=== PATIENT | female | born 1995 | race Caucasian/White ===

== ENCOUNTER → 2017-01-07 | Outpatient (CLI) | payer OTHER ==
[2017-01-07 16:37] LABS: TOTAL PROTEIN,URINE 25.2 mg/dl (0-11.9)
== END ==
LOC: LAB 15:41
PROVIDERS: ATTEND Specialist
DX: Z34.83 Encounter for supervision of other normal pregnancy, third trimester (principal); R03.0 Elevated blood-pressure reading, without diagnosis of hypertension
CPT/HCPCS: 81050; 84157

== ENCOUNTER 2017-01-10 19:08 | Inpatient (IN) | payer OTHER ==
[2017-01-10 19:16] VITALS: BMI 35.1
[2017-01-10 19:38] LABS: BILIRUBIN,URINE NEGATIVE (NEGATIVE); BLOOD/HEMOGLOBIN,URINE 1+ (NEGATIVE); GLUCOSE, URINE NEGATIVE (NEGATIVE); KETONES,URINE NEGATIVE (NEGATIVE); LEUKOCYTE ESTERASE ,URINE 3+ (NEGATIVE); NITRITES,URINE NEGATIVE (NEGATIVE); PROTEIN,URINE 2+ (NEGATIVE); UROBILINOGEN,URINE NORMAL (NORMAL)
[2017-01-10 19:48] LABS: AMORPHOUS SEDIMENT,UR TRACE /HPF (NEGATIVE); APPEARANCE,URINE HAZY (CLEAR); BACTERIA,URINE 1+ /HPF (NEGATIVE); COLOR,URINE YELLOW (YELLOW); MUCUS,URINE FEW /HPF (NEGATIVE); SQUAMOUS EPITHELIAL CELL,UR MODERATE /HPF (NEGATIVE)
--- NOTE | 2017-01-10 19:59 | DR.GENAD ---
HPI - PCP Primary Care Physician: lilo - Complaint/Symptoms Chief Complaint:: pt states" i'm having trouble peeing and my back hurts i peed a few hours ago but i'm scared i may have a kidney stone or something cause my family has kidney stones" pt very emotional in triage - Nurses notes reviewed Nurses Notes Review: Yes - Source History Provided: Patient - Mode of Arrival Mode of Arrival: Ambulatory - Timing Onset of Chief Complaint: 01/07/17 PMH - PMH Past Medical History: No Past Surgical History: No - Family History History of Family Medical Conditions: No - Social History Alcohol Use: None Do you use any recreational Drugs:: No Lives With: Family Lives Where: Home - infectious screening In the last 2 months have you had wt loss of >10#?: NO Have you had fever, night sweats or hemotysis?: No Have you traveled outside the country in the last 6 months?: No Isolation: Standard PE - Vital Signs Vitals: Temperature 98.4 F Pulse Rate 83 Respiratory Rate 18 Blood Pressure 177/119 O2 Sat by Pulse Oximetry 96 ROR - Labs Reviewed Result Diagrams: 01/11/17 03:05 01/10/17 22:00 - Discharge Plan Disposition: ADMITTED INPATIENT Condition: Stable - Follow ups/Referrals - Instructions
[2017-01-10] MEDS ORDERED: D5LR 1000ML W PITOCIN 10 U/L 1,000 ML IV ONE (20:39)
[2017-01-10] MEDS ORDERED: NS 50 ML IV + SPIKE MINIBAG* 50 ML IV ONE (20:39)
[2017-01-10] MEDS ORDERED: D5 1/2 NS 1000ML W PITOCIN 20 U/L 1,000 ML IV ONE (20:40)
[2017-01-10] MEDS ORDERED: AMPICILLIN VIAL 2 GM ONE (20:40)
[2017-01-10] MEDS ORDERED: PITOCIN ONE (20:40)
[2017-01-10] MEDS ORDERED: D5 1/2 NS 1000 ML 1,000 ML IV ONE (20:40)
[2017-01-10] MEDS ORDERED: FENTANYL INJ 100 mcg ONE (21:13)
[2017-01-10] MEDS ORDERED: NAROPIN EPIDURAL 0.2% + FENTANYL 90MCG 60 ML EPI ONE (21:13)
[2017-01-10] MEDS ORDERED: LR 1000 ML IV 1,000 ML IV ONE ×2 (21:14→21:40)
[2017-01-10] MEDS ORDERED: NAROPIN EPIDURAL 0.2% 60 ML with FENTANYL INJ 100 mcg 90 MCG IVP SCH ×2 (21:40)
[2017-01-10] MEDS ORDERED: FENTANYL INJ 100 mcg EPI ONE (21:40)
[2017-01-10] MEDS ORDERED: REGLAN INJ 10 MG VIAL IVP PRN (21:46)
[2017-01-10] MEDS ORDERED: PITOCIN 10 UNITS in D5 LR 1000 ML 1,000 ML IV PRN (21:46)
[2017-01-10] MEDS ORDERED: PITOCIN IVP ONE (21:46)
[2017-01-10] MEDS ORDERED: PHENERGAN INJ 25 MG IV PRN (21:46)
[2017-01-10] MEDS ORDERED: NUBAIN INJ 200 MG VIAL MULTIDOSE IVP PRN (21:46)
[2017-01-10] MEDS ORDERED: MORPHINE SULFATE INJ 2 MG IVP PRN (21:46)
[2017-01-10] MEDS ORDERED: D5 1/2 NS 1000 ML 1,000 ML IV SCH (22:00)
[2017-01-10] MEDS ORDERED: AMPICILLIN VIAL 2 GM 2 GM in NS 100 ML IV + SPIKE MINIBAG* 100 ML IV SCH (22:00)
[2017-01-10 22:16] LABS: BASOPHILS # (AUTO) 0.1 X10^3/uL (0.0-0.1); BASOPHILS % (AUTO) 1.1 % (0.2-1.0); EOSINOPHILS # (AUTO) 0.1 x10^3/uL (0.0-0.2); HEMATOCRIT 33.7 % (36.0-47.0); HEMOGLOBIN 11.4 g/dL (12.0-16.0); LYMPHOCYTES % (AUTO) 15.8 % (21.0-51.0); MEAN CORPUSCULAR HEMOGLOBIN 31.8 pg (27.0-34.0); MEAN CORPUSCULAR HGB CONC 33.9 g/dL (33.0-35.0); MEAN CORPUSCULAR VOLUME 93.9 fL (80.0-100.0); MEAN PLATELET VOLUME 10.7 fL (7.4-11.0); MONOCYTES # (AUTO) 0.9 x10^3/uL (0.3-0.8); MONOCYTES % (AUTO) 7.2 % (0.0-13.0); NEUTROPHILS # (AUTO) 9.4 x10^3/uL (2.2-4.8); NEUTROPHILS % (AUTO) 74.9 % (42.0-75.0); PLATELET COUNT 214 X10^3/uL (150.0-450.0); RED BLOOD COUNT 3.59 X10^6/uL (3.5-5.4); RED CELL DISTRIBUTION WIDTH 13.3 % (11.6-16.5); WHITE BLOOD COUNT 12.5 X10^3/uL (3.6-10.0)
[2017-01-10 22:21] LABS: BLOOD UREA NITROGEN 6 mg/dL (7-18); CALCIUM 8.9 mg/dL (8.5-10.1); CARBON DIOXIDE 24.2 mmol/L (21-32); CHLORIDE 104 mmol/L (98-107); CREATININE 0.48 mg/dL (0.55-1.02); GLUCOSE 91 mg/dL (65-99); SODIUM 137 mmol/L (136-145); eGFR BLACK RACES > 60 (>60); eGFR NON BLACK RACES > 60 (>60)
[2017-01-11] MEDS ORDERED: MOTRIN TAB 800 MG PO PRN (00:59)
[2017-01-11] MEDS ORDERED: PHENERGAN INJ 25 MG IV PRN ×2 (00:59→02:03)
--- NOTE | 2017-01-11 00:59 | DR.OB ---
OB Quick Note - Assessment/Plan Assessment/Plan: Delivery Note DELI/BAKERY ASSOCIATE 01/11/17 at 12:55am Patient complete and pushing. Head delivered over intact perineum. No nuchal cord. Nose and mouth bulb suctioned. Body delivered over intact perineum. Cord clamped x 2 and cut. Infant handed to attendant. Cord sent for gases. Placenta delivered spontaneously / intact / 3 vessel cord. No CVX tears. A small midline second degree tear noted and repaired with 0-vicryl in usual fashion. Viable male infant, VTX/OA, wt=5'10" and 9/9, stable to NBN. Mother stable to RR. [id number].
[2017-01-11] MEDS ORDERED: D5 1/2 NS 1000 ML 1,000 ML with PITOCIN 20 UNITS IV SCH ×4 (01:00→09:00)
[2017-01-11] MEDS ORDERED: AMPICILLIN VIAL 1 GM 1 GM in NS 50 ML IV + SPIKE MINIBAG* 50 ML IV SCH (01:22)
[2017-01-11] MEDS ORDERED: MILK OF MAGNESIA PO PRN (02:03)
[2017-01-11] MEDS ORDERED: AMBIEN PO PRN (02:03)
[2017-01-11] MEDS ORDERED: DERMOPLAST SPRAY TOP PRN (02:03)
[2017-01-11] MEDS ORDERED: ADACEL TDaP IM ONE ×2 (02:03→07:48)
[2017-01-11] MEDS ORDERED: REGLAN INJ 10 MG VIAL IVP PRN (02:03)
[2017-01-11] MEDS: MOTRIN TAB 800 MG PO PRN ×2 (05:52→21:09)
[2017-01-11] MEDS: PRENATAL PLUS PO SCH (08:40)
[2017-01-11] MEDS: ZANTAC PO SCH ×2 (08:40→21:09)
[2017-01-11] MEDS: FERROUS SULFATE PO SCH (17:22)
[2017-01-12] MEDS: FERROUS SULFATE PO SCH (06:05)
[2017-01-12 08:09] VITALS: BP 133/90
[2017-01-12] MEDS: ZANTAC PO SCH (08:29)
[2017-01-12] MEDS: PRENATAL PLUS PO SCH (08:29)
== END 2017-01-12 11:05 | disposition home or self-care (01) | DRG 775 ==
LOC: ER 19:20 → LD 20:46 → MED/SURG 01-11 01:48
PROVIDERS: ADMIT Specialist; ATTEND Specialist
PROC: 10E0XZZ Delivery of Products of Conception, External Approach (ICD-10-PCS; principal; 2017-01-10)
PROC: 00HU33Z Insertion of Infusion Device into Spinal Canal, Percutaneous Approach (ICD-10-PCS; 2017-01-10)
PROC: 0KQM0ZZ Repair Perineum Muscle, Open Approach (ICD-10-PCS; 2017-01-10)
PROC: 3E0234Z Introduction of Serum, Toxoid and Vaccine into Muscle, Percutaneous Approach (ICD-10-PCS; 2017-01-11)
DX: O13.3 Gestational [pregnancy-induced] hypertension without significant proteinuria, third trimester (principal); Z37.0 Single live birth; O60.14X0 Preterm labor third trimester with preterm delivery third trimester, not applicable or unspecified; Z22.330 Carrier of Group B streptococcus; D50.8 Other iron deficiency anemias; O70.1 Second degree perineal laceration during delivery; Z3A.35 35 weeks gestation of pregnancy; Z23 Encounter for immunization
CPT/HCPCS: 09167; 36415; 59409; 80048; 81001; 85014; 85018; 85025; 86592; 86850; 86900; 86901; 87086; 99284; A4216; A4222; S0197; J0290; J2590; J3010; J7042; J7120

== ENCOUNTER 2018-04-26 06:20 | Inpatient (IN) ==
[2018-04-26] MEDS ORDERED: LR 1000 ML IV 1,000 ML IV ONE ×2 (06:34→16:04)
[2018-04-26] MEDS ORDERED: ADRENALINE CHL INJ ONE (06:35)
[2018-04-26] MEDS ORDERED: FENTANYL INJ 100 mcg ONE ×2 (06:35→16:28)
[2018-04-26] MEDS ORDERED: PITOCIN ONE (06:35)
[2018-04-26] MEDS ORDERED: XYLOCAINE 1 % (PLAIN) ONE (06:36)
[2018-04-26] MEDS ORDERED: D5 1/2 NS 1000 ML 1,000 ML IV ONE (06:36)
[2018-04-26] MEDS ORDERED: D5 1/2 NS 1L W PITOCIN 20 UNITS/L 20 UNITS/1,000 ML BAG IV ONE (06:36)
[2018-04-26] MEDS ORDERED: NAROPIN EPIDURAL 0.2% + FENTANYL 90MCG 60 ML EPI ONE (06:36)
--- NOTE | 2018-04-26 07:00 | DR.OB ---
OB Quick Note - Assessment/Plan Assessment/Plan: L&D 04/26/18 at 6:50am S-No complaint. O-Afebrile,VSS [id number] with good LTV, +accel, no decel. CTX=occasional,mild CVX=2cm/50%/-1/VTX AROM with clear fluid. IUPC and FSE placed. A-IUP at 39 1/7 weeks for induction P-Begin pitocin induction Anticipate
[2018-04-26] MEDS ORDERED: NUBAIN INJ 200 MG VIAL MULTIDOSE IVP PRN (07:01)
[2018-04-26] MEDS ORDERED: REGLAN INJ 10 MG VIAL IVP PRN ×2 (07:01→17:10)
[2018-04-26] MEDS ORDERED: D5 1/2 NS 1000 ML 1,000 ML IV SCH (07:01)
[2018-04-26] MEDS ORDERED: PHENERGAN INJ 25 MG IV PRN ×2 (07:01→14:19)
[2018-04-26] MEDS ORDERED: MORPHINE SULFATE INJ 2 MG INJ IVP PRN (07:01)
[2018-04-26] MEDS ORDERED: D5LR 1L W PITOCIN 10 UNITS/L 10 UNITS/1,000 ML BAG IV PRN (07:01)
[2018-04-26] MEDS ORDERED: PITOCIN IVP ONE (07:01)
[2018-04-26] MEDS: D5LR 1L W PITOCIN 10 UNITS/L 10 UNITS/1,000 ML BAG IV ONE ×2 (08:23→08:25)
[2018-04-26] MEDS ORDERED: ZOFRAN INJ 4 MG VIAL ONE (09:16)
[2018-04-26] MEDS ORDERED: EPHEDRINE SULFATE INJ ONE (09:16)
[2018-04-26] MEDS ORDERED: LTA KIT LIDOCAINE 4% ONE (09:16)
[2018-04-26] MEDS ORDERED: DIPRIVAN VIAL ONE (09:16)
[2018-04-26] MEDS ORDERED: SUPRANE IN ONE (09:16)
[2018-04-26] MEDS ORDERED: VERSED ONE (09:16)
[2018-04-26] MEDS ORDERED: QUELICIN (OR ANECTINE) ONE (09:16)
[2018-04-26] MEDS ORDERED: MOTRIN TAB 800 MG PO PRN (14:19)
[2018-04-26] MEDS ORDERED: D5 1/2 NS 1000 ML 1,000 ML with PITOCIN 20 UNITS IV SCH ×2 (15:00)
[2018-04-26] MEDS ORDERED: XYLOCAINE 2% and EPINEPHRINE 1:100,000 ONE (15:26)
[2018-04-26] MEDS ORDERED: ANCEF 1 GRAM IV PREMIX* 1 G/50 ML BAG IV ONE (15:43)
[2018-04-26] MEDS ORDERED: DILAUDID INJ IVP PRN (17:10)
[2018-04-26] MEDS ORDERED: BENADRYL INJ 50 MG VIAL IVP PRN (17:10)
[2018-04-26] MEDS ORDERED: ZOFRAN INJ 4 MG VIAL IVP PRN (17:10)
[2018-04-26] MEDS ORDERED: PHENERGAN INJ 25 MG IVP PRN (17:10)
--- NOTE | 2018-04-26 17:14 | DR.OB ---
OB Quick Note - Assessment/Plan Assessment/Plan: L&D 04/26/18 at 11:55am Pitocin=14mu/min. S-No complaint. s/p epidural. O-Afebrile,VSS WBI=437 with good LTV, +accel, no decel. CTX=q 1 1/2 to 2 min., about 35-55mmHg CVX=4cm/50%/0 A-IUP at 39 1/7 weeks for induction P-Cont. pitocin induction Anticipate
--- NOTE | 2018-04-26 17:18 | DR.OB ---
OB Quick Note - Assessment/Plan Assessment/Plan: Delivery Note SEAM CHECKER 04/26/18 at 2:04pm Patient complete and pushing. Head delivered over intact perineum. No nuchal cord. Nose and mouth bulb suctioned. Body delivered over intact perineum. Cord clamped x 2 and cut. handed to attendant. Cord sent for gases. Placenta delivered spontaneously / intact / 3 vessel cord. No CVX tears. A small introital tear noted and repaired with figure-of-8 stitch of 0-vicryl for hemostasis. Viable female , VTX/OA, wt=5'9" and 9/9, stable to NBN. Mother stable to RR. CND=[id number].
[2018-04-26] MEDS ORDERED: MYLICON TAB 80 MG CHEW PO PRN (17:27)
[2018-04-26] MEDS ORDERED: MILK OF MAGNESIA PO PRN ×2 (17:27)
[2018-04-26] MEDS ORDERED: AMBIEN PO PRN ×2 (17:27)
[2018-04-26] MEDS ORDERED: ADACEL or BOOSTRIX TDaP VACCINE IM ONE (17:27)
[2018-04-26] MEDS ORDERED: DERMOPLAST SPRAY TOP PRN (17:27)
[2018-04-26] MEDS: PERCOCET TAB 5/325 MG PO PRN ×2 (18:39→23:30)
[2018-04-26] MEDS ORDERED: COLACE CAP 100 MG PO SCH (21:00)
[2018-04-26] MEDS: ZANTAC PO SCH (21:09)
[2018-04-27] MEDS: PERCOCET TAB 5/325 MG PO PRN (05:21)
[2018-04-27 05:58] LABS: HEMATOCRIT 26.3 % (36.0-47.0)
[2018-04-27 06:21] LABS: HEMOGLOBIN 8.7 g/dL (12.0-16.0)
[2018-04-27] MEDS ORDERED: MOTRIN TAB 800 MG PO PRN (07:38)
[2018-04-27] MEDS ORDERED: PRENATAL PLUS PO SCH (09:00)
[2018-04-27] MEDS ORDERED: CELEXA PO SCH (09:00)
[2018-04-27] MEDS: ZANTAC PO SCH (09:26)
[2018-04-27] MEDS ORDERED: BACTROBAN TOPICAL OINT TOP SCH (14:00)
[2018-04-27] MEDS ORDERED: FERROUS GLUCONATE PO SCH (17:00)
[2018-04-27 17:14] VITALS: BP 120/84
== END 2018-04-27 17:05 | disposition home or self-care (01) | DRG 798 ==
LOC: LD 06:20 → MED/SURG 17:39
PROVIDERS: ADMIT Specialist; ATTEND Specialist
DX: N87.0 Mild cervical dysplasia; D50.8 Other iron deficiency anemias; Z37.0 Single live birth; Z3A.39 39 weeks gestation of pregnancy; Z30.2 Encounter for sterilization; O98.513 Other viral diseases complicating pregnancy, third trimester; O99.343 Other mental disorders complicating pregnancy, third trimester; Z23 Encounter for immunization
CPT/HCPCS: 36415; 59409; 80048; 80307; 81001; 85014; 85018; 85025; 86592; 86850; 86900; 86901; 90715; A4216; A4222; S0197; G0434; J0171; J0330; J0690; J2001; J2250; J2405; J2590; J2704; J3010; J3490; J7120; S5010